=== PATIENT | female | born 1970 | race Caucasian/White ===

== ENCOUNTER 2017-12-13 12:48 | Emergency (ER) | payer MEDICAID, OTHER ==
[~2017-12-13] VITALS: Ht 162.6 cm; Wt 124.5 kg
[~2017-12-13 12:48] MED LIST: ALBU8.5H8 IH; ALEN35TA32 PO; PRED10 PO
[2017-12-13 13:58] VITALS: BP 157/106
== END 2017-12-13 15:06 | disposition home or self-care (01) ==
LOC: EMS 12:49
DX: M79.671 Pain in right foot (principal); I10 Essential (primary) hypertension; E78.00 Pure hypercholesterolemia, unspecified; J44.9 Chronic obstructive pulmonary disease, unspecified; J45.909 Unspecified asthma, uncomplicated
CPT/HCPCS: 99282

== ENCOUNTER 2022-01-31 08:32 | Emergency (ER) | payer MEDICAID ==
[~2022-01-31] VITALS: Ht 157.5 cm; Wt 127.3 kg
[2022-01-31 10:25] LABS: BASOPHILS % (AUTO) 1.3 % (0.0-2.0); EOSINOPHILS % (AUTO) 3.8 % (1.0-6.0); HEMATOCRIT 38.8 % (36-46); HEMOGLOBIN 12.7 g/dL (12.0-16.0); LYMPHOCYTES % (AUTO) 19.8 % (22.0-44.0); MEAN CORPUSCULAR HEMOGLOBIN 26.6 pg (26.0-34.0); MEAN CORPUSCULAR HGB CONC 32.9 G/dL (31.0-37.0); MEAN CORPUSCULAR VOLUME 81 fL (80-100); MONOCYTES # (AUTO) 0.4 K/uL (0.1-1.0); MONOCYTES % (AUTO) 7.7 % (2.0-9.0); NEUTROPHILS # (AUTO) 3.3 K/uL (1.8-7.7); NEUTROPHILS % (AUTO) 67.4 % (40.0-70.0); PLATELET COUNT (AUTO) 222 K/uL (150-450); RED BLOOD CELL COUNT(AUTO) 4.79 MIL/uL (4.00-5.20); RED CELL DISTRIBUTION WIDTH 15.7 % (11.5-14.5)
[2022-01-31 10:26] LABS: APPEARANCE,URINE TURBID (CLEAR); BILIRUBIN,URINE NEGATIVE (NEGATIVE); GLUCOSE, URINE (UA) NEGATIVE (NEGATIVE); KETONES,URINE NEGATIVE (NEGATIVE); LEUKOCYTE ESTERASE ,URINE LARGE (NEGATIVE); NITRATE,URINE NEGATIVE (NEGATIVE); OCCULT BLOOD,URINE SMALL (NEGATIVE); PROTEIN,URINE 30-70 mg/dL (NEGATIVE); UROBILINOGEN,URINE <=1.0 mg/dL (<=1.0)
[2022-01-31 10:35] LABS: CALCIUM, TOTAL 8.8 mg/dL (8.8-10.5); CREATININE 1.16 mg/dL (0.60-1.30); POTASSIUM 4.2 mmol/L (3.5-5.1)
[2022-01-31 10:40] LABS: ALBUMIN 3.5 g/dL (3.4-5.0); BILIRUBIN,TOTAL 0.5 mg/dL (0.1-1.0); TOTAL PROTEIN, SERUM 7.4 g/dL (6.4-8.2)
[2022-01-31 10:43] LABS: BACTERIA,URINE Moderate /HPF (None Seen); SQUAMOUS EPITHELIAL CELL,UR Many /LPF (None Seen); WBC,URINE 26-50 /HPF (0-5)
[2022-01-31] MEDS ORDERED: CefTRIAXone SODIUM 1 GM/VIAL IM ONE (11:00)
[2022-01-31] MEDS ORDERED: LIDOCAINE/PF 1% 2 ML VIAL IM ONE (11:00)
[2022-01-31] MEDS ORDERED: SULF-261 PO (12:43)
[2022-01-31 12:45] VITALS: BP 119/78
== END 2022-01-31 12:59 | disposition home or self-care (01) ==
LOC: EMS 08:32
DX: N39.0 Urinary tract infection, site not specified (principal); I10 Essential (primary) hypertension; E78.00 Pure hypercholesterolemia, unspecified; J44.9 Chronic obstructive pulmonary disease, unspecified
CPT/HCPCS: 36415; 80053; 81001; 85025; 87086; 96372; 99283; J0696; J3490

== ENCOUNTER 2022-08-16 08:01 | Day surgery (SDC) | payer MEDICAID ==
[2022-08-15 10:35] LABS: COVID AG,FIA SOURCE NASAL SWAB
[~2022-08-16] VITALS: Ht 157.5 cm; Wt 122.5 kg
[~2022-08-16 08:01] MED LIST changes: -ALBU8.5H8 IH; -ALEN35TA32 PO; -PRED10 PO; +SULF-261 PO
[2022-08-16] MEDS ORDERED: LIDOCAINE/PF 2% 5 ML SYRINGE IVP ONE (08:02)
[2022-08-16] MEDS ORDERED: PROPOFOL 1% 20 ML VIAL IVP ONE (08:02)
[2022-08-16] MEDS ORDERED: SODIUM CHLORIDE 0.9% 1,000 ML IV ONE (10:00)
== END 2022-08-16 11:45 | disposition home or self-care (01) ==
LOC: SURGERY 08:01
PROVIDERS: ATTEND Internal Medicine Gastroenterology
DX: K64.0 First degree hemorrhoids (principal); J44.9 Chronic obstructive pulmonary disease, unspecified; I10 Essential (primary) hypertension; G47.30 Sleep apnea, unspecified; E66.01 Morbid (severe) obesity due to excess calories; Z68.43 Body mass index [BMI] 50.0-59.9, adult; Z20.822 Contact with and (suspected) exposure to COVID-19; J45.909 Unspecified asthma, uncomplicated; Z90.49 Acquired absence of other specified parts of digestive tract; Z98.890 Other specified postprocedural states; Z79.899 Other long term (current) drug therapy; Z86.73 Personal history of transient ischemic attack (TIA), and cerebral infarction without residual deficits; G47.33 Obstructive sleep apnea (adult) (pediatric)
CPT/HCPCS: 87426; 45378; C9803; J2704; J3490